=== PATIENT | male | born 2000 | race Caucasian/White ===

== ENCOUNTER 2022-08-07 23:57 | Emergency (ER) | payer SELFPAY ==
[~2022-08-07] VITALS: Ht 165.1 cm; Wt 62.1 kg
[2022-08-08 00:36] VITALS: BP 104/62
--- NOTE | 2022-08-08 01:36 | NUR ---
PT TO BED 7 WITH STEADY GAIT
[2022-08-08] MEDS ORDERED: BACITRACIN OINT 500 UNITS/GM PKT TP ONE (02:20)
[2022-08-08] MEDS ORDERED: ACETAMINOPHEN 325 MG TAB PO ONE (02:25)
[2022-08-08 03:08] VITALS: BP 104/62
--- NOTE | 2022-08-08 03:08 | NUR ---
Patient discharged with v/s stable. Written and verbal after care instructions given and explained. Patient verbalized understanding. Ambulatory with steady gait. All questions addressed prior to discharge. Advised to follow up with PMD. DX: ABRASION
== END 2022-08-08 02:19 | disposition home or self-care (01) ==
LOC: MED 23:57
DX: S00.81XA Abrasion of other part of head, initial encounter (principal); V00.141A Fall from scooter (nonmotorized), initial encounter; Y93.89 Activity, other specified; Y92.89 Other specified places as the place of occurrence of the external cause; Y99.8 Other external cause status
CPT/HCPCS: 90471; 90715; 99283

== ENCOUNTER 2023-05-31 20:51 | Emergency (ER) | payer MEDICAID ==
[~2023-05-31] VITALS: Ht 160 cm; Wt 54.4 kg
[2023-05-31 21:24] VITALS: BP 100/67; PULSE 80; RESP 18; TEMP 97.6; O2SAT 98
[2023-05-31] MEDS ORDERED: NAPR-54 PO (23:36)
== END 2023-05-31 23:40 | disposition home or self-care (01) ==
LOC: MED 20:51
DX: S63.502A Unspecified sprain of left wrist, initial encounter (principal); S83.92XA Sprain of unspecified site of left knee, initial encounter; Z79.899 Other long term (current) drug therapy; V89.2XXA Person injured in unspecified motor-vehicle accident, traffic, initial encounter; Y93.89 Activity, other specified; Y92.89 Other specified places as the place of occurrence of the external cause; Y99.8 Other external cause status
CPT/HCPCS: 73100; 73562; 99284